=== PATIENT | female | born 1970 | race Caucasian/White ===

== ENCOUNTER 2017-10-15 09:15 | Day surgery (SDC) | payer BC ==
[~2017-10-15] VITALS: Ht 165.1 cm; Wt 126.8 kg
[2017-10-15] MEDS ORDERED: TYLENOL 325MG325 MG PO (09:27)
[2017-10-15 09:31] VITALS: BP 132/87; PULSE 93; TEMP 99
[2017-10-15] MEDS ORDERED: ADDERALL15 MG PO (09:31)
[2017-10-15] MEDS ORDERED: CLEOCIN HCL300 MG PO (09:52)
[2017-10-15 11:20] VITALS: BP 114/75; PULSE 86; TEMP 97.6
[2017-10-15 11:35] VITALS: BP 116/87; PULSE 85
[2017-10-15] MEDS ORDERED: ADDERALL20 MG PO (11:42)
[2017-10-15 11:50] VITALS: BP 117/73; PULSE 74
[2017-10-15] MEDS ORDERED: PENTASA500 MG PO (12:45)
== END 2017-10-15 12:20 | disposition home or self-care (01) ==
LOC: SDCO 09:15
DX: K50.112 Crohn's disease of large intestine with intestinal obstruction (principal); K56.609 Unspecified intestinal obstruction, unspecified as to partial versus complete obstruction; K52.9 Noninfective gastroenteritis and colitis, unspecified; K21.0 Gastro-esophageal reflux disease with esophagitis; K22.2 Esophageal obstruction; K44.9 Diaphragmatic hernia without obstruction or gangrene; F90.9 Attention-deficit hyperactivity disorder, unspecified type; Z79.899 Other long term (current) drug therapy
CPT/HCPCS: J2704